=== PATIENT | female | born 1965 | race Caucasian/White ===

== ENCOUNTER 2024-12-21 16:34 | Emergency (ER) | payer OTHER ==
[~2024-12-21] VITALS: Ht 165.1 cm; Wt 120.4 kg
[2024-12-21] MEDS ORDERED: DIPHENHYDRAMINE25 M2 PO (17:17)
[2024-12-21] MEDS ORDERED: SERTRALINE HCL50 MG PO (17:25)
[2024-12-21] MEDS ORDERED: LISINOPRIL10 MG PO (17:25)
[2024-12-21] MEDS: DEXAMETHASONE SOD PHOS INJ 4 MG/ML SDV IM ONE (17:53)
[2024-12-21 17:55] VITALS: PULSE 83; RESP 16; TEMP 97.9; O2SAT 97
== END 2024-12-21 17:55 | disposition home or self-care (01) ==
LOC: FSED 16:44
DX: L74.0 Miliaria rubra (principal); I10 Essential (primary) hypertension; E11.9 Type 2 diabetes mellitus without complications
CPT/HCPCS: 96372; 99283; J1100